=== PATIENT | female | born 1975 | race African-American/Black ===

== ENCOUNTER 2019-05-22 22:11 | Emergency (ER) | payer OTHER ==
[~2019-05-22] VITALS: Ht 165.1 cm; Wt 68.0 kg
[2019-05-22 23:43] LABS: PLATELET COUNT 328 K/uL (152-353)
[2019-05-22 23:52] LABS: POTASSIUM 3.8 mmol/L (3.6-5.2)
[2019-05-23 02:03] VITALS: BP 120/63; TEMP 98.1
== END 2019-05-23 02:06 | disposition home or self-care (01) ==
LOC: ED 22:11
PROVIDERS: Emergency Medicine
DX: K29.00 Acute gastritis without bleeding (principal); N39.0 Urinary tract infection, site not specified
CPT/HCPCS: 36415; 80053; 81000; 81025; 82150; 83690; 85027; 87077; 87086; 87088; 87186; 96360; 96375; 99284; J2405